=== PATIENT | female | born 1995 | race Caucasian/White ===

== ENCOUNTER 2017-02-11 09:03 | Inpatient (IN) | payer MEDICAID ==
[~2017-02-11] VITALS: Ht 170.2 cm; Wt 64.4 kg
[~2017-02-11 09:03] MED LIST: ALBU8HFA IH
[2017-02-11] MEDS ORDERED: IBUP-1681 PO (09:27)
[2017-02-11 09:40] LABS: BASOPHILS % (AUTO) 0.1 % (0.0-2.0); EOSINOPHILS % (AUTO) 0 % (1.0-6.0); HEMATOCRIT 44.6 % (36-46); LYMPHOCYTES # (AUTO) 0.8 K/uL (1.0-4.8); LYMPHOCYTES % (AUTO) 15.6 % (22.0-44.0); MEAN CORPUSCULAR HEMOGLOBIN 30.7 pg (26.0-34.0); MEAN CORPUSCULAR HGB CONC 33.5 G/dL (31.0-37.0); MEAN CORPUSCULAR VOLUME 92 fL (80-100); MONOCYTES # (AUTO) 0.6 K/uL (0.1-1.0); NEUTROPHILS # (AUTO) 3.9 K/uL (1.8-7.7); NEUTROPHILS % (AUTO) 73.3 % (40.0-70.0); PLATELET COUNT (AUTO) 247 K/uL (150-450); RED BLOOD CELL COUNT(AUTO) 4.87 MIL/uL (4.00-5.20); RED CELL DISTRIBUTION WIDTH 12.6 % (11.5-14.5); WHITE BLOOD COUNT (AUTO) 5.3 K/uL (4.5-11.0)
[2017-02-11 09:47] LABS: ANION GAP 10 mmol/L (8-16); CALCIUM, TOTAL 8.6 mg/dL (8.8-10.5); CARBON DIOXIDE 26 mmol/L (22-29); CHLORIDE 104 mmol/L (98-107); CREATININE 0.71 mg/dL (0.60-1.30); GLOMERULAR FILTR. RATE CALC > 60 mL/min (>60); POTASSIUM 3.5 mmol/L (3.5-5.1); SODIUM SERUM 140 mmol/L (136-145); UREA NITROGEN, BLOOD 6 mg/dL (7-18)
[2017-02-11 09:53] LABS: ALANINE AMINOTRANSFERASE 30 U/L (12-78); ALBUMIN 4.1 g/dL (3.4-5.0); ASPARTATE AMINOTRANSFERASE 60 U/L (15-37); BILIRUBIN,TOTAL 0.6 mg/dL (0.1-1.0); TOTAL PROTEIN, SERUM 7.6 g/dL (6.4-8.2)
[2017-02-11] MEDS ORDERED: LORazepam 2 MG TABLET PO ONE (11:00)
[2017-02-11 11:36] LABS: SALICYLATE 0.4 mg/dL (2.8-20.0)
[2017-02-11 11:41] LABS: ACETAMINOPHEN < 2 mcg/mL (10-30)
[2017-02-11] MEDS ORDERED: ZOLPIDEM TARTRATE 10 MG TABLET PO PRN (11:45)
[2017-02-11 13:12] VITALS: BP 126/76
[2017-02-11] MEDS: LORazepam 2 MG TABLET PO PRN (13:57)
[2017-02-11] MEDS ORDERED: IBUPROFEN 400 MG TABLET PO PRN (16:00)
[2017-02-11] MEDS ORDERED: ALBUTEROL SULFATE HFA 90 MCG/PUFF 8 GM INHALER IH PRN (16:00)
[2017-02-11] MEDS ORDERED: ACETAMINOPHEN 325 MG TABLET PO PRN (16:00)
[2017-02-11 16:46] VITALS: BP 101/48
[2017-02-11 16:47] VITALS: BP 101/84
[2017-02-11] MEDS: HALOPERIDOL 5 MG TABLET PO PRN (19:00)
[2017-02-12 06:39] VITALS: BP 125/72
[2017-02-12 08:38] VITALS: BP 116/67
[2017-02-12 09:02] LABS: THYROID STIMULATING HORMONE 0.48 uIU/mL (0.36-3.74)
[2017-02-12] MEDS: LORazepam 2 MG TABLET PO PRN (12:12)
[2017-02-12] MEDS: HALOPERIDOL 5 MG TABLET PO PRN (15:52)
[2017-02-12 16:21] VITALS: BP 112/74
[2017-02-13 00:28] VITALS: BP 110/68
[2017-02-13 08:01] VITALS: BP 125/66
[2017-02-13] MEDS ORDERED: SERTRALINE HCL 50 MG TABLET PO SCH (09:00)
[2017-02-13] MEDS: LORazepam 2 MG TABLET PO PRN (09:58)
[2017-02-13] MEDS ORDERED: SERT50TA12 PO (14:06)
== END 2017-02-13 15:45 | disposition home or self-care (01) | DRG 751 ==
LOC: EMS 09:04 → B2S 11:38
DX: F33.2 Major depressive disorder, recurrent severe without psychotic features (principal); R45.851 Suicidal ideations; F41.9 Anxiety disorder, unspecified; F43.21 Adjustment disorder with depressed mood; J45.909 Unspecified asthma, uncomplicated; R74.0 Nonspecific elevation of levels of transaminase and lactic acid dehydrogenase [LDH]; Z28.21 Immunization not carried out because of patient refusal; Z79.899 Other long term (current) drug therapy
CPT/HCPCS: 83036; 84443; 99285; G0480; G0481

== ENCOUNTER 2018-02-25 15:47 | Emergency (ER) | payer MEDICAID ==
[~2018-02-25] VITALS: Ht 180.3 cm; Wt 63.5 kg
[~2018-02-25 15:47] MED LIST changes: -ALBU8HFA IH; +SERT50TA12 PO
[2018-02-25] MEDS ORDERED: IBUPROFEN 600 MG TABLET PO ONE (17:00)
[2018-02-25] MEDS ORDERED: METHOCARBAMOL 500 MG TABLET PO ONE (17:00)
[2018-02-25 18:01] VITALS: BP 136/74
== END 2018-02-25 18:04 | disposition home or self-care (01) ==
LOC: EMS 15:50
DX: M79.642 Pain in left hand (principal); M25.512 Pain in left shoulder; M54.2 Cervicalgia; J34.89 Other specified disorders of nose and nasal sinuses; J45.909 Unspecified asthma, uncomplicated; F12.90 Cannabis use, unspecified, uncomplicated
CPT/HCPCS: 99284